=== PATIENT | male | born 1985 | race Caucasian/White ===

== ENCOUNTER 2020-10-11 08:29 | Emergency (ER) | payer MEDICAID ==
[~2020-10-11] VITALS: Ht 172.7 cm; Wt 66.8 kg
[2020-10-11 08:36] VITALS: BP 130/72
== END 2020-10-11 09:50 | disposition home or self-care (01) ==
LOC: ER 08:29
DX: R07.89 Other chest pain (principal); F17.210 Nicotine dependence, cigarettes, uncomplicated
CPT/HCPCS: 93005; 99283